=== PATIENT | female | born 1990 | race Caucasian/White ===

== ENCOUNTER → 2022-01-01 | Outpatient (CLI) | payer OTHER | LOC: EXRD 12:56 | DX: M79.89 Other specified soft tissue disorders (principal); M79.605 Pain in left leg | CPT/HCPCS: 93971 ==

== ENCOUNTER → 2022-01-31 | Outpatient (CLI) | payer OTHER | LOC: US 13:30 | DX: I80.222 Phlebitis and thrombophlebitis of left popliteal vein (principal) | CPT/HCPCS: 93971 ==